=== PATIENT | female | born 1985 | race Caucasian/White ===

== ENCOUNTER 2017-03-15 22:01 | Emergency (ER) | payer SELFPAY ==
[~2017-03-15] VITALS: Ht 154.9 cm; Wt 87.1 kg
[2017-03-16 00:02] VITALS: BP 122/48
== END 2017-03-16 00:03 | disposition home or self-care (01) ==
LOC: ED 22:01
DX: H70.001 Acute mastoiditis without complications, right ear (principal); Z79.899 Other long term (current) drug therapy